=== PATIENT | female | born 1995 | race Caucasian/White ===

== ENCOUNTER 2017-07-15 13:42 | Emergency (ER) | payer MEDICAID ==
[~2017-07-15] VITALS: Ht 160 cm; Wt 68.0 kg
[2017-07-15 13:54] VITALS: BP 114/61
--- NOTE | 2017-07-15 15:30 | NUR ---
Patient to bed 06.
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
--- NOTE | 2017-07-15 15:42 | NUR ---
Patient being evaluated by FOWER at bedside.
--- NOTE | 2017-07-15 16:06 | NUR ---
LAB at bedside.
--- NOTE | 2017-07-15 16:20 | NUR ---
US at bedside.
[2017-07-15 16:25] LABS: BASOPHILS # (AUTO) 0.1 K/uL (0.00-0.22); BASOPHILS % (AUTO) 1.1 % (0.0-2.0); EOSINOPHILS # (AUTO) 0.1 K/uL (0-0.4); EOSINOPHILS % (AUTO) 1.1 % (0.0-4.0); HEMATOCRIT 35.7 % (36-48); HEMOGLOBIN 12.1 g/dL (12.0-16.0); LYMPHOCYTES # (AUTO) 1.5 K/uL (2.5-16.5); LYMPHOCYTES % (AUTO) 19.6 % (20.5-51.1); MEAN CORPUSCULAR HEMOGLOBIN 28 pg (27-31); MEAN CORPUSCULAR HGB CONC 34 g/dL (33-37); MEAN CORPUSCULAR VOLUME 84 fL (80-94); MONOCYTES # (AUTO) 0.4 K/uL (0.8-1.0); MONOCYTES % (AUTO) 5.6 % (1.7-9.3); NEUTROPHILS # (AUTO) 5.3 K/uL (1.8-7.7); NEUTROPHILS % (AUTO) 72.6 % (42.2-75.2); PLATELET COUNT (AUTO) 269 K/uL (140-450); RED BLOOD CELL COUNT(AUTO) 4.26 MIL/uL (4.20-5.40); RED CELL DISTRIBUTION WIDTH 11.8 % (11.6-13.7); WHITE BLOOD COUNT (AUTO) 7.4 K/uL (4.8-10.8)
[2017-07-15 17:25] LABS: APPEARANCE,URINE CLEAR (CLEAR); BILIRUBIN,URINE NEGATIVE (NEGATIVE); BLOOD, URINE NEGATIVE (NEGATIVE); COLOR,URINE YELLOW (YELLOW); LEUKOCYTE ESTERASE ,URINE NEGATIVE (NEGATIVE); NITRITE, URINE NEGATIVE (NEGATIVE); UGLUCOSE NEGATIVE (NEGATIVE)
--- NOTE | 2017-07-15 17:25 | NUR ---
Patient appears to be resting comfortably in bed. Vital Signs within normal limits. Respirations even and unlabored.WILL CONTINUE TO MONITOR.
[2017-07-15 17:35] LABS: RBC,URINE 0-5 (RARE) /HPF (0-5); WBC,URINE 0-5 (RARE) /HPF (0-5)
[2017-07-15 18:09] VITALS: BP 108/60
--- NOTE | 2017-07-15 18:09 | NUR ---
Patient discharged with v/s stable. Written and verbal after care instructions given and explained. Patient alert, oriented and verbalized understanding of instructions. Ambulatory with steady gait. All questions addressed prior to discharge. ID band removed. Patient advised to follow up with PMD. Rx of COMPLEATE-RF TABLET given. Patient educated on indication of medication including possible reaction and side effects. Opportunity to ask questions provided and answered.
== END 2017-07-15 18:09 | disposition home or self-care (01) ==
LOC: MED 13:42
DX: O26.892 Other specified pregnancy related conditions, second trimester (principal); R10.2 Pelvic and perineal pain; Z3A.16 16 weeks gestation of pregnancy
CPT/HCPCS: 36415; 76805; 81001; 84702; 85025; 86900; 86901; 99285; Q0092

== ENCOUNTER 2019-01-17 13:48 | Emergency (ER) | payer MEDICAID, OTHER ==
[~2019-01-17] VITALS: Ht 162.6 cm; Wt 69.5 kg
[2019-01-17 14:32] VITALS: BP 117/72
--- NOTE | 2019-01-17 14:35 | NUR ---
PT AMBULATES BACK TO THE LOBBY
--- NOTE | 2019-01-17 15:03 | NUR ---
PT AMBULATED TO BED 08.
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
[2019-01-17] MEDS ORDERED: ACETAMINOPHEN 325 MG TAB PO ONE (16:00)
--- NOTE | 2019-01-17 16:00 | NUR ---
DR CONCEPCION AT BEDSIDE
--- NOTE | 2019-01-17 16:00 | NUR ---
Chelsie barney in [facility] - 01/17/19 at [email or web address] CONCEPCION AT BEDSIDE
--- NOTE | 2019-01-17 16:20 | NUR ---
PT WILL TAKE IBUPROFEN AT HOME
--- NOTE | 2019-01-17 16:23 | NUR ---
SPLINT PLACED BY [facility] EMT. PT VERBALIZES UNDERSTANDING OF SPLINT CARE. + PEDAL PULSE ON RIGHT FOOT.
[2019-01-17 16:24] VITALS: BP 116/70
== END 2019-01-17 16:24 | disposition home or self-care (01) ==
LOC: MED 13:48
DX: S92.511A Displaced fracture of proximal phalanx of right lesser toe(s), initial encounter for closed fracture (principal); W22.8XXA Striking against or struck by other objects, initial encounter; Y93.89 Activity, other specified; Y92.89 Other specified places as the place of occurrence of the external cause; Y99.8 Other external cause status
CPT/HCPCS: 73630; 99283

== ENCOUNTER 2019-07-11 13:56 | Emergency (ER) | payer OTHER ==
[~2019-07-11] VITALS: Ht 160 cm; Wt 63.1 kg
[2019-07-11 13:59] VITALS: BP 116/82
--- NOTE | 2019-07-11 14:02 | NUR ---
PT AMBULATED TO LOBBY W/ VSS.
--- NOTE | 2019-07-11 15:10 | NUR ---
PT AMBULATED TO CHAIR B AT THIS TIME
--- NOTE | 2019-07-11 15:15 | NUR ---
C/O PAIN TO STYE RIGHT EYE--REDNESS DENIES INJURY--NO VISUAL CHANGES
[2019-07-11 16:25] VITALS: BP 116/82
--- NOTE | 2019-07-11 16:25 | NUR ---
Patient discharged with v/s stable. Written and verbal after care instructions given and explained. Patient alert, oriented and verbalized understanding of instructions. Ambulatory with steady gait. All questions addressed prior to discharge. ID band removed. Patient advised to follow up with PMD. Rx of ERYTHROMYCIN OINT given. Patient educated on indication of medication including possible reaction and side effects. Opportunity to ask questions provided and answered.
== END 2019-07-11 16:25 | disposition home or self-care (01) ==
LOC: MED 13:56
DX: H10.89 Other conjunctivitis (principal); B96.89 Other specified bacterial agents as the cause of diseases classified elsewhere; H00.012 Hordeolum externum right lower eyelid
CPT/HCPCS: 99283

== ENCOUNTER 2023-06-10 16:00 | Emergency (ER) | payer OTHER ==
[~2023-06-10] VITALS: Ht 160 cm; Wt 59.0 kg
[2023-06-10 16:29] VITALS: BP 125/66; PULSE 89; RESP 20; TEMP 98.3; O2SAT 99
[2023-06-10] MEDS ORDERED: IBUP-1842 PO (17:30)
[2023-06-10] MEDS ORDERED: DICL100G5 TP (17:30)
[2023-06-10 17:43] VITALS: BP 125/66; PULSE 89; RESP 20; TEMP 98.3; O2SAT 99
== END 2023-06-10 17:43 | disposition home or self-care (01) ==
LOC: MED 16:00
DX: M79.642 Pain in left hand (principal); Z79.899 Other long term (current) drug therapy
CPT/HCPCS: 73130; 99283